=== PATIENT | male | born 1990 | race Caucasian/White ===

== ENCOUNTER 2019-11-18 04:38 | Emergency (ER) | payer SELFPAY ==
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
--- NOTE | 2019-11-18 05:57 | RADIOLOGY REPORT (SQ) ---
LEFT SHOULDER RADIOGRAPHS: 11/18/2019 4:56 AM CDT TECHNIQUE: AP internal/external rotation, Y views of the left shoulder were obtained. COMPARISON: None available HISTORY: 29-year old patient with left shoulder pain. FINDINGS: The visualized portions of the left hemithorax appear unremarkable. The left acromioclavicular joint appears unremarkable. There are no findings to suggest an acute fracture of the left shoulder. The visualized portions of the left clavicle demonstrate no evidence of an acute fracture. The visualized soft tissues appear unremarkable. IMPRESSION: There are no findings to suggest an acute fracture of the left shoulder.
--- NOTE | 2019-11-18 05:58 | RADIOLOGY REPORT (SQ) ---
Left elbow radiographs:11/18/2019 5:02 AM CDT HISTORY: 29-year-old patient with left elbow pain . COMPARISON: None available TECHNIQUE: AP and lateral images of the left elbow were obtained. FINDINGS: The visualized soft tissues appear grossly unremarkable. No large joint effusion is noted. No abnormal soft tissue calcifications are seen. There are no findings to suggest an acute fracture or subluxation of the left elbow. IMPRESSION: There are no findings to suggest an acute fracture or subluxation of the left elbow.
--- NOTE | 2019-11-18 05:59 | RADIOLOGY REPORT (SQ) ---
Left wrist radiographs: 11/18/2019 4:57 AM CDT TECHNIQUE: AP, lateral, oblique images of the left wrist were obtained. COMPARISON: None available HISTORY: 29-year-old patient with left wrist pain . FINDINGS: There are no findings to suggest an acute fracture or subluxation. The soft tissues are unremarkable. The scapholunate interval is within normal limits. The carpal arcs appear to be intact. IMPRESSION: There are no findings to suggest an acute fracture or subluxation of the left wrist.
[2019-11-18 06:53] VITALS: BP 101/64
== END 2019-11-18 06:42 | disposition home or self-care (01) ==
LOC: ER 04:38
DX: M79.601 Pain in right arm (principal); M25.532 Pain in left wrist; R68.84 Jaw pain; Z59.0 Homelessness; Y04.0XXA Assault by unarmed brawl or fight, initial encounter
CPT/HCPCS: 99284